=== PATIENT | female | born 1990 | race Caucasian/White ===

== ENCOUNTER → 2018-09-09 17:45 | Outpatient (CLI) | payer OTHER, SELFPAY ==
[2018-09-09 20:08] LABS: Chlamydia Trachomatis by PCR Negative (Negative); Neisserai gonorrhoeae by PCR Negative (Negative); Probe Check PASS; Sample Adequacy Control PASS; Specimen Processing Control PASS
[2018-09-12 15:55] LABS: HPV Reflexed? NOT INDICATED
== END ==
PROVIDERS: Referring Provider Obstetrics & Gynecology; Visit Provider Obstetrics & Gynecology
DX: Z12.4 Encounter for screening for malignant neoplasm of cervix (principal); Z11.3 Encounter for screening for infections with a predominantly sexual mode of transmission
CPT/HCPCS: 87491; 87591; 88175; G0145

== ENCOUNTER → 2018-09-25 | Outpatient (CLI) | payer OTHER, SELFPAY ==
[2018-09-25 17:22] LABS: Absolute Lymphocyte Count 1.89 X10^3/ul (0.83-4.51); Absolute Neutrophil Count 5.5 X10^3/uL (2.0-7.7); Basophil# 0.02 X10^3/uL; Basophil% 0.2 % (0-1); Eosinophil# 0.07 X10^3/uL; Eosinophils% 0.9 % (0-5); Hematocrit 37.8 % (37-47); Hemoglobin 13.1 g/dl (12.0-15.0); Lymphocyte # 1.89 X10^3/ul (4.0); Lymphocyte % 23.6 % (19-41); Mean Corp Hgb Conc 34.7 g/gl (32-36); Mean Corpuscular Hgb 30.7 pg (27.0-32.0); Mean Corpuscular Volume 88.5 fL (81-99); Monocyte# 0.54 X10^3/uL; Monocyte% 6.7 % (0-10); Neutrophil # 5.48 X10^3/uL (2.7-7.7); Neutrophil % 68.5 % (47-70); POSITIVE COUNT NO; POSITIVE DIFFERENTIAL NO; POSITIVE MORPHOLOGY NO; Platelet Count 209 K/mm3 (150-450); RBC Distribution Width CV 12.5 % (11.6-14.6); RBC Distribution Width SD 39.9 fl (35.1-43.9); Red Blood Count 4.27 M/mm3 (4.2-5.4)
[2018-09-25 17:58] LABS: Color, Urine Yellow (Yellow); Glucose, Dipstick Normal (Normal); Ketone-Dipstick Negative (Negative); Leukocyte Esterase-Dipstick 100 /ul (Negative); Nitrite-Dipstick Negative (Negative); Occult Blood-Urine Negative /ul (Negative); Protein-Dipstick Negative (Negative); Urine Bilirubin Dipstick Negative (Negative); Urine Clarity Clear (Clear); Urine Urobilinogen Normal (Normal)
[2018-09-25 18:01] LABS: Thyroid Stim Hormone (TSH) 5.38 uIU/mL (0.358-3.74)
[2018-09-25 18:35] LABS: HIV - WCH Non-Reactive (Nonreactive); Rubella IgG 136.6 IU/mL
[2018-09-26 10:22] LABS: Free T3 2.7 pg/mL (2.18-3.98); T4 Free Direct 1.04 ng/dL (0.76-1.46)
[2018-09-27 02:52] LABS: Prenatal RPR NONREACTIVE (NONREACTIVE)
[2018-09-27 13:16] LABS: HEPATITIS B SURFACE AG Negative (Negative); Hep C Antibodies <0.1 s/co ratio (0.0-0.9)
== END | disposition home or self-care (01) ==
LOC: WOBLAB 16:51
PROVIDERS: Visit Provider Obstetrics & Gynecology
DX: Z34.81 Encounter for supervision of other normal pregnancy, first trimester (principal); R79.89 Other specified abnormal findings of blood chemistry
CPT/HCPCS: 36415; 81002; 84439; 84443; 84481; 85025; 86703; 86762; 86803; 87340

== ENCOUNTER → 2019-01-27 | Outpatient (CLI) | payer OTHER, SELFPAY ==
[2019-01-27 17:47] LABS: Hematocrit 35.4 % (37-47); Hemoglobin 12.1 g/dL (12.0-15.0); Mean Corp Hgb Conc 34.2 g/dL (32-36); Mean Corpuscular Hgb 32.3 pg (27.0-32.0); Mean Corpuscular Volume 94.4 fL (81-99); Mean Platelet Vol. 11.6 fl (6.2-12.0); Platelet Count 180 K/mm3 (150-450); RBC Distribution Width CV 11.9 % (11.6-14.6); RBC Distribution Width SD 40.9 fl (35.1-43.9); Red Blood Count 3.75 M/mm3 (4.2-5.4); White Blood Count 8.6 K/mm3 (4.4-11.0)
[2019-01-27 17:54] LABS: Free T3 2.1 pg/mL (2.18-3.98); Glucose Challenge Gest 1H 50g 100 mg/dL (70-140); T4 Free Direct 0.92 ng/dL (0.76-1.46); Thyroid Stim Hormone (TSH) 4.29 uIU/mL (0.358-3.74)
== END | disposition home or self-care (01) ==
LOC: WOBLAB 15:57
PROVIDERS: Visit Provider Obstetrics & Gynecology
DX: Z34.82 Encounter for supervision of other normal pregnancy, second trimester (principal); R94.6 Abnormal results of thyroid function studies
CPT/HCPCS: 36415; 82950; 84439; 84443; 84481; 85027

== ENCOUNTER → 2019-04-01 | Outpatient (CLI) | payer OTHER, SELFPAY | END | disposition home or self-care (01) | LOC: LABSPEC 14:13 | PROVIDERS: Visit Provider Obstetrics & Gynecology | DX: Z36.85 Encounter for antenatal screening for Streptococcus B (principal) | CPT/HCPCS: 87081 ==

== ENCOUNTER 2019-04-27 00:36 | Inpatient (IN) | payer OTHER, SELFPAY ==
[2019-04-27 01:40] VITALS: BMI 26.7
[2019-04-27] MEDS: Lactated Ringers 1,000 ML 200 ML IV ×3 (01:40→09:42)
[2019-04-27 01:55] LABS: Absolute Lymphocyte Count 1.45 X10^3/uL (0.83-4.51); Absolute Neutrophil Count 9.2 X10^3/uL (2.0-7.7); Basophil# 0.03 X10^3/uL; Basophil% 0.3 % (0-1); Eosinophil# 0.06 X10^3/uL; Eosinophils% 0.5 % (0-5); Hematocrit 33.5 % (37-47); Hemoglobin 11.1 g/dL (12.0-15.0); Lymphocyte # 1.45 X10^3/ul (4.0); Lymphocyte % 12.8 % (19-41); Mean Corp Hgb Conc 33.1 g/dL (32-36); Mean Corpuscular Hgb 29.5 pg (27.0-32.0); Mean Corpuscular Volume 89.1 fL (81-99); Mean Platelet Vol. 12.3 fl (6.2-12.0); Monocyte# 0.48 X10^3/uL; Monocyte% 4.2 % (0-10); NRBC Flagged by Analyzer 0 % (0-5); Neutrophil # 9.23 X10^3/uL (2.7-7.7); Neutrophil % 81.7 % (47-70); Platelet Count 161 K/mm3 (150-450); RBC Distribution Width CV 12.8 % (11.6-14.6); RBC Distribution Width SD 41.5 fl (35.1-43.9); Red Blood Count 3.76 M/mm3 (4.2-5.4); White Blood Count 11.3 K/mm3 (4.4-11.0)
[2019-04-27] MEDS: Lactated Ringers 500 ML 999 ML IV (02:00)
[2019-04-27] MEDS: fentaNYL-bupivacaine (epidural) 100 ML BAG EPIDURAL ×2 (03:20→07:55)
--- NOTE | 2019-04-27 09:13 | PCM.HP.OB ---
History Date of Admission: 04/27/19 Final JALYN: 04/25/19 Final JALYN Source: US <20 weeks Gestational age: 40 Weeks and 2 Days History of this : This is a 28 year-old, G [1], P [0], at 40.2 weeks gestational age. Male fetus known to have a 2 vessel cord with a chorio plexus. Weekly NSTs have been reactive. Allergies No Known Allergies Allergy (Verified 04/27/19 02:18) Home Medications: Home Medications Levothyroxine [Synthroid] 25 mcg PO DAILY 04/27/19 Pnv 102/Iron/Folate 1/Dss/Dha 04/27/19 Smoking Status: Never smoker Alcohol: None Number of Fetus(es): 1 NST - FHR Rate Baby A Baseline: 130 Variability:: Moderate Accelerations:: 15 x 15 Decelerations:: None NST Reactive:: Yes FHR Category:: Category I Uterine Activity:: UC 2-4 min apart History Past Pregnancies: Past Pregnancies Delivery Date Name GA/ Weeks Outcome Route Wt Infant Sex Labor Length Anesthesia Delivery Location Provider FOB Labs: Mom's Labs & Results 04/27/19 04/27/19 01:40 01:40 WBC 11.3 H RBC 3.76 L Hgb 11.1 L Hct 33.5 L MCV 89.1 MCH 29.5 MCHC 33.1 RDW Std Deviation 41.5 RDW Coeff of Justen 12.8 Plt Count 161 MPV 12.3 H Immature Gran % (Auto) 0.500 Neut % (Auto) 81.7 H Lymph % (Auto) 12.8 L [place] % (Auto) 4.2 Eos % (Auto) 0.5 Baso % (Auto) 0.3 Absolute Neuts (auto) 9.2 H Absolute Lymphs (auto) 1.45 Nucleated RBC % 0 Blood Type B POSITIVE Antibody Screen NEGATIVE Course Did the patient receive Yes care? Labs Blood Type: B RH: POSITIVE RPR/VDRL/Syphilis Nonreactive Rubella status Immune HbSAg Negative Date Done: 09/25/18 Chlamydia Negative Gonorrhea Negative HIV/AIDS Non-Reactive Group B Strep: Negative Current Obstetrical History Gestational Diabetes No Incompetent Cervix No Infertility No IUGR No Macrosomia No Hypertension/Pre-eclampsia No Placenta Previa/Abruption No PTL/PROM No Uterine anomaly No Oligohydramnios No Polyhydramnios No Multiple gestation No Past Medical History Asthma No Diabetes No Hypertension No Heart disease No Mitral valve prolapse No Neurologic/Seizure disorder/ Yes Migraines Kidney disease No Liver disease No Varicosities No Clotting disorders/Hx of DVT No Thyroid Dysfunction Yes Other medical diseases No Psychiatric disorders No Major trauma No Abnormal PAP smear No Sleep apnea No Mammogram in the last 2 years No Social History Marital Status: Alleged father Jorge Hx Smoking No Smoking Status Never smoker Expected Infant Delivery Method: Spontaneous Vaginal Number of Visits: 16 Review of Systems Constitutional: Denies: Chills, Fever, Weight Change HEENT: Denies: Head Aches, Sinus Congestion, Sinus Drainage Cardiovascular: Denies: Chest Pain, Palpitations Respiratory: Denies: Cough, Shortness of breath at rest, Sputum production Gastrointestinal: Denies: Abdominal Pain, Nausea, Vomiting Genitourinary: Denies: Dysuria Musculoskeletal: Denies: Joint Pain, Joint Tenderness Skin: Denies: Rash, Wounds Neurological: Denies: Numbness, Tingling, Focal weakness Psychiatric: Denies: Anxiety, Depression, Homicidal Ideations, Suicidal Ideations Hematologic/ Lymphatic: Denies: Easy Bruising, Easy Bleeding Physical Exam General: Alert, Oriented x3, No apparent distress HEENT: Atraumatic, Normocephalic. 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 Negative for: Vulvar lesions Estimated gestational size: Appropriate for gestational size Presentation: Cephalic Cervix Dilation (cm): 9.5 - cervical lip 9-12 o'clock Station: 1 Effacement (%): 100 Assessment/Plan A: This is a 28 year-old, G [1], P [0], at 40.2 weeks gestational age. Here for spontaneous labor. FHR baseline 130, + accels, -decels, moderate variability; Category I UC 1-[address] SVE 9.5/100/+1 Male fetus on Ultrasound known to have 2 vessel cord and chorio plexus P: Turned into right CHILD Continue with labor, expecting [place] Supervisor to evaluate after delivery
[2019-04-27] MEDS: Ondansetron 4 MG/2 ML Vial IV (09:23)
[2019-04-27] MEDS: Oxytocin 30 units/NS 500 ml 30 UNITS/500 ML IV.SOLN 334 UNITS IV (11:36)
--- NOTE | 2019-04-27 11:38 | PLAC_PTH ---
PATIENT: ROBERT APARICIO LOC: [facility] U#:[id number] AGE/SX: 28/F ROOM: WP004 RE04/27/[address]: Precious Atwood CNM : 1990 BED: 1 DIS: 04/29/2019 SPEC #: [id number] RECD: 04/27/19 14:19 STATUS: BRENDA DANK #: [id number] DONNIE: 04/27/19 11:[address]: Precious Atwood DEPT: SURGICAL PATHOLOGY RECD BY: Chauncey Scherer ENTERED: 04/28/19 11:01 SP TYPE: PLACENTA OTHR DR: Dr. Nancy Zamora MD Tissues: Placenta, NOS Procedures: Surgery Specimen Level V HEADER OPERATION: Vaginal delivery PRE-OP DIAGNOSIS: To determine if cord has 2 or 3 vessels TISSUE SUBMITTED: Placenta MICROSCOPIC DIAGNOSIS Placenta: Placental disc - third trimester placenta (490 gm). - Focal area of infarction (1.5 cm in greatest dimension). - Focal increased intervillous and perivillous fibrin deposition. Membranes - no pathologic diagnosis. Umbilical cord - two blood vessels. SJ:russ 04/30/19 MICROSCOPIC DESCRIPTION Slides are reviewed. GROSS DESCRIPTION SPECIMEN: PLACENTA / CLINICAL INFORMATION: A. Weight: 2.993 kg B. Gestational Age: 40 weeks C. Sex: Male PLACENTAL WEIGHT (POST FIXATION): 490 gm PLACENTAL DIMENSIONS: 19 x 15 x 3 cm PLACENTAL SHAPE: Usual ovoid PLACENTAL WEIGHT FOR GESTATIONAL AGE: Within 10-99th percentile MEMBRANES - Present A. Insertion: Marginal B. Site of rupture from edge: 3 cm from edge of placental disc C. Color of membrane: Gotti-abarca D. Abnormalities: None UMBILICAL CORD - Present A. Color: Gotti-abarca B. Insertion: Eccentric, received in two fragments C. Length: 47 cm D. Diameter: 1.2 cm E. Number of vessels: Two F. Abnormalities: None PLACENTAL DISC - Present A. Color of surface: Gotti-abarca B. surface abnormalities: None C. Maternal cotyledons: Intact with minimal tears D. Attached retro placental clot: No clot E. Cut surface: Dark red and spongy F. Lesions: Serial sections reveal a gotti-white lesion at the edge of the placental disc measuring 1.5 x 1 cm in greatest dimension. G. Separate clot: Absent SECTIONS SUBMITTED: 1. Peripheral membranes 2. Umbical cord 3. Placental disc, lesion 4. Commis Chef sections of uninvolved placental disc 5. Commis Chef sections of uninvolved placental disc AM:russ 04/29/19 TC:4 CPT: 09414
--- NOTE | 2019-04-27 12:20 | PCM.OPRPT ---
Vaginal Delivery Maternal Presentation: Active Labor Amniotic Membrane Rupture Type: Artificial - with pushing Amniotic Fluid Description: Clear Final JALYN: 04/25/19 Final JALYN Source: US <20 weeks Gestational age: 40 Weeks and 2 Days Date of Procedure: 04/27/19 Pre-Operative Diagnosis: 40 weeks gestation Post-Operative Diagnosis: S/P Surgery/ Procedure Performed: Spontaneous Vaginal Delivery Type of Anesthesia: Epidural Description of Procedure: Pushed well, delivered a viable male OA to GARRETT. placed on mothers abdomen. Apgars 8/9. Cord clamped x2 by CNM and cut by FOB. Pitocin started at 334ml/hr. Placenta delivered spontaneously, French mechanism, intact, appearing 3 vessel cord(expected 2 vessel cord per US), central insertion, fundal massage provided. Placenta sent for pathology. Second degree laceration of left vaginal vault extending to perineum, repaired with a 3.0 vicryl by CNM and attending. First degree right periurethal laceration, repaired with a 3.0 vicryl. EBL 150. Sponge and instrument count correct x 2 with RN. Precious Atwood CNM delivered with CNM attending Dr. Zamora present throughout. Presentation: Vertex, GARRETT Placental Delivery Description: Spontaneous Placenta Disposition: Sent to Pathology Cord Vessel Description: 3 Vessels - U/S shows 2 vessel cord, appears to be 3 vessel, placenta sent to pathology Cord Entanglement: None Drain: Red to straight drain Estimated Blood Loss: 150 A gender: Male (1 minute): 8 (5 minute): 9 Episiotomy Description: None Laceration: Vaginal Extension/lac - left vaginal floor to perineal, 2nd degree Medications given after delivery: IV Pitocin
--- NOTE | 2019-04-27 12:40 | DCINST_ITS ---
Discharge Diet: No Restrictions Discharge Activity: Return to Normal Activity, May not drive while taking narcotic pain medications., May Shower May resume sexual activity in: 4-6 weeks Additional Activity Instructions:: Nothing in the vagina for 4-6 weeks. You may return to work/school in 6 weeks. Call your doctor if your incision/area has: Continuous Slow Oozing, Sudden Increased Bleeding, Increased Pain/ Swelling, Increased Redness, Foul Smelling Discharge Additional Dressing/Incision Instructions:: For vaginal laceration/repair Additional Instructions: If you experience any of the following, contact your healthcare provider. * Bleeding that soaks a pad every hour for 2 hours * Unrelieved incision or abdominal pain * Swelling, redness, discharge or bleeding from your incision or episiotomy site * Your incision begins to separate * Problems urinating (including inability to urinate or burning while urinating). * Visual changes * Severe headache * Flu-like symptoms * Pain or redness in one of both of your breasts * Pain, warmth, tenderness or swelling in your legs, especially the calf area * Frequent nausea and vomiting * Symptoms of depression or anxiety If you experience any of the following, call 911 or go to the nearest Emergency Room. * Chest pain * Problems breathing * Seizure activity * Partial or complete paralysis of a body part, slurred speech, weakness or drooping of the face, or a sudden inability to walk or hold your balance Allergies/Adverse Reactions: Allergies No Known Allergies Allergy (Verified 04/27/19 02:18) Medications to take at Discharge Acetaminophen [Tylenol] 1,000 mg PO Q8H PRN PRN tablet 04/27/19 Ibuprofen [Motrin] 600 mg PO Q6H PRN PRN tablet 04/27/19 Levothyroxine [Synthroid] 25 mcg PO DAILY 04/27/19 Oxycodone [Oxyir] 5 - 10 mg PO Q4H PRN PRN 4 Days #10 tablet 04/27/19 Pnv 102/Iron/Folate 1/Dss/Dha 04/27/19 The following prescriptions were given: Oxycodone [Oxyir] 5 - 10 mg PO Q4H PRN PRN 4 Days #10 tablet PRN Reason: Pain Score 4-10/10 Transmission Status: Received by [facility]/pharmacy #[id number] Please Follow Up With: Precious Atwood CNM When: Call to make an appointment with your doctor in 6 weeks. Primary Care Physician: Care Physician,No Primary [Primary Care Provider] - Test Results: Test results from this visit will be discussed in further detail at your follow- up appointment, if applicable. Proposed Discharge Date: 04/29/19
[2019-04-27] MEDS: Levothyroxine 25 MCG TABLET PO (13:15)
[2019-04-27 15:57] VITALS: BP 116/73; PULSE 88; RESP 18; TEMP 37.3
[2019-04-27] MEDS: Ibuprofen 600 MG Tablet PO (16:05)
[2019-04-27 20:40] VITALS: BP 127/87; PULSE 81; RESP 18; TEMP 36.4
[2019-04-27] MEDS: Acetaminophen 500 MG Tablet 1000 MG PO (21:14)
[2019-04-28 00:35] VITALS: BP 118/81; PULSE 74; RESP 18; TEMP 36.4
[2019-04-28] MEDS: Ibuprofen 600 MG Tablet PO ×3 (02:29→15:48)
[2019-04-28 03:01] VITALS: BP 140/86; PULSE 91; RESP 18; TEMP 36.9; O2SAT 100
[2019-04-28] MEDS: Levothyroxine 25 MCG TABLET PO (06:50)
[2019-04-28] MEDS: Acetaminophen 500 MG Tablet 1000 MG PO ×2 (06:53→18:12)
[2019-04-28 08:00] VITALS: BP 124/88; PULSE 90; RESP 16; TEMP 36.9
--- NOTE | 2019-04-28 08:32 | PCM.PN.BLA ---
Progress Note Went in to do rounds, but Dena is sleeping. states she is fine and to just let her sleep for now. Let him know I will be back at lunch to check back in.
[2019-04-28] MEDS: Senna/Docusate Sodium 1 Tablet PO (09:23)
[2019-04-28] MEDS: Prenatal Vits Tablet 1 TABLET PO (09:23)
--- NOTE | 2019-04-28 12:47 | PCM.PN.OB ---
Subjective: Feeling well, but bottom is sore. Pain 4/10. Using Motrin, Tylenol, and ice which help. States was crying really upset yesterday after the senior human resources representative spoke with her, but after they talked to 's mother and found out he had a similiar testicle issue she felt much better. Today she is emotionally good. Objective: S/P NVD day #1. Using Motrin, Tylenol, ice, witch ad pads and hydrocortisone cream for second degree laceration. Pain is 4/10. Sitting up in chair for lunch. is in the room. Infant male in nursery for testing and testicular ultrasound. Fundus u/1. Passing flatus, no BM yet. Lochia light red, moderate. continues with shield and lanolin ointment. Working with d/t sons recessed chin. - Physical Exam Vitals/I&O's: Vital Signs Temp Pulse Resp BP Pulse Ox 98.5 F 90 16 124/88 H 100 04/28/19 08:00 04/28/19 08:00 04/28/19 08:00 04/28/19 08:00 04/28/19 03:01 Oxygen Delivery Method Room Air Weight: 77.564 kg Body Mass Index (BMI) 26.7 Intake and Output for Last 24 Hours 04/26/19 04/27/19 04/28/19 23:59 23:59 23:59 Intake Total 3106.67 / 3106.67 Output Total 3100 / 3100 Balance 6.67 / 6.67 General: Alert, Oriented x3, Cooperative HEENT: Atraumatic, PERRLA, EOMI, Normocephalic Neck: Supple, No JVD, Negative Carotid Bruits Lungs: Clear to auscultation, Normal air movement Cardiovascular: Regular rate, No murmurs Abdomen: Bowel Sounds Present, Soft, Non Tender, Passing Flatus, - - Fundus u/1, firm Extremities: Capillary Refill Less than 3 Seconds, Edema - bilateral feet +2 Skin: No rashes, No breakdown Musculoskeletal: No Tenderness to Palpation of Joints or Extremities Neurological: Cranial nerves II-XII grossly intact Psych/Mental Status: Normal Affect, Appropriate, Anxious - Some anxiety over sons unknown medical issues Current Medications Acetaminophen (Tylenol) 1,000 mg PO Q8H PRN PRN PRN Reason: Pain Score 1-3/10 Last Admin: 04/28/19 06:53 Dose: 1,000 mg Documented by: Bisacodyl (Dulcolax) 10 mg RECTAL UD PRN PRN Reason: If no BM Dibucaine (Dibucaine) 1 applic TOPICAL TID PRN PRN; Protocol PRN Reason: Discomfort Hydrocortisone (Hytone) 1 applic TOPICAL TID PRN PRN; Protocol PRN Reason: Discomfort Ibuprofen (Motrin) 600 mg PO Q6H PRN PRN PRN Reason: Pain Score 1-3/10 Last Admin: 04/28/19 09:23 Dose: 600 mg Documented by: Levothyroxine Sodium (Synthroid) 25 mcg PO DAILY@0600 MARIAH Last Admin: 04/28/19 06:50 Dose: 25 mcg Documented by: Methylergonovine Maleate (Methergine) 0.2 mg IM X1 PRN PRN Reason: Excess bleeding/uterine atony Ondansetron HCl (Zofran) 4 mg IV Q4H PRN PRN PRN Reason: Nausea Oxycodone HCl (Oxyir) 5 - 10 mg PO Q4H PRN PRN PRN Reason: Pain Score 4-10/10 Multivit/Folic Acid/Iron (Prenatabs Fa) 1 tablet PO DAILY@1200 MARIAH Last Admin: 04/28/19 09:23 Dose: 1 tablet Documented by: Senna/Docusate Sodium (Senokot-S, Gladis-Colace) 1 - 2 tablet PO DAILY PRN PRN PRN Reason: Constipation Last Admin: 04/28/19 09:23 Dose: 2 tablet Documented by: Simethicone (Mylicon) 80 mg PO PCHS PRN PRN Reason: Indigestion/Stomach pain Sodium Chloride () 5 - 15 ml IV UD PRN PRN Reason: SALINE FLUSH Medical Necessity - Tobacco Use Smoking Status: Never smoker Assessment/Plan A: S/P day 1 of Second degree vaginal/perineal laceration Recovery P: Will stay one more day for observation Continue pain management Increase fluids and fiber, encouraged ambulation Educated on normal lochia, s/s of PPD, return of ovulation and menses, techniques, and when to return to office.
[2019-04-28 13:49] VITALS: BP 136/104; PULSE 106; RESP 16; TEMP 36.6
[2019-04-28 20:07] VITALS: BP 140/98; PULSE 85; RESP 18; TEMP 36.6; O2SAT 97
[2019-04-29 01:44] VITALS: BP 119/76; PULSE 76; RESP 18; TEMP 36.8
[2019-04-29] MEDS: Ibuprofen 600 MG Tablet PO (05:07)
[2019-04-29] MEDS: Levothyroxine 25 MCG TABLET PO (06:19)
[2019-04-29 08:00] VITALS: BP 127/84; PULSE 71; RESP 16; TEMP 36.9; O2SAT 97
--- NOTE | 2019-04-29 08:07 | DS.PCM_ITS ---
Discharge Date and Diagnosis Date of Admission: 04/27/19 Date of Discharge: 04/29/19 Hospital Course and Treatment Operations: None Procedures: None Summary of Care Provided: The patient is a 28 year old F [] Subjective: Reports first BM. Pain well controlled with Tylenol and Motrin. Will continue OTC Tylenol, Motrin, and stool softener at home as needed. Feeling worried about her son because ultrasound couldn't find testes at all. They are going to follow up tomorrow in [place]. Otherwise feeling well and ready to go home. Objective: Fundus u/2, firm. Lochia scant rubra. Tearful when talking about sons diagnosis and going to [place] tomorrow. Postvaginal delivery day #2, healing as expected. - Physical Exam Vitals/I&O's: Vital Signs Temp Pulse Resp BP Pulse Ox 98.2 F 76 18 119/76 97 04/29/19 01:44 04/29/19 01:44 04/29/19 01:44 04/29/19 01:44 04/28/19 20:07 Oxygen Delivery Method Room Air Weight: 77.564 kg Body Mass Index (BMI) 26.7 Intake and Output for Last 24 Hours 04/27/19 04/28/19 04/29/19 23:59 23:59 23:59 Intake Total 3106.67 / 3106.67 Output Total 3100 / 3100 Balance 6.67 / 6.67 General: Alert, Oriented x3, Cooperative HEENT: Atraumatic, PERRLA, EOMI, Normocephalic Neck: Supple, No JVD, Negative Carotid Bruits Lungs: Clear to auscultation, Normal air movement Cardiovascular: Regular rate, No murmurs Abdomen: Bowel Sounds Present, Soft, Non Tender, Passing Flatus, - - Fundus u/2 Extremities: Capillary Refill Less than 3 Seconds, Edema - Bilateral feet +1 Skin: No rashes, No breakdown Musculoskeletal: No Tenderness to Palpation of Joints or Extremities Neurological: Cranial nerves II-XII grossly intact Psych/Mental Status: Normal Affect, Appropriate, Anxious Current Medications Acetaminophen (Tylenol) 1,000 mg PO Q8H PRN PRN PRN Reason: Pain Score 1-3/10 Last Admin: 04/28/19 18:12 Dose: 1,000 mg Documented by: Bisacodyl (Dulcolax) 10 mg RECTAL UD PRN PRN Reason: If no BM Dibucaine (Dibucaine) 1 applic TOPICAL TID PRN PRN; Protocol PRN Reason: Discomfort Hydrocortisone (Hytone) 1 applic TOPICAL TID PRN PRN; Protocol PRN Reason: Discomfort Ibuprofen (Motrin) 600 mg PO Q6H PRN PRN PRN Reason: Pain Score 1-3/10 Last Admin: 04/29/19 05:07 Dose: 600 mg Documented by: Levothyroxine Sodium (Synthroid) 25 mcg PO DAILY@0600 MARIAH Last Admin: 04/29/19 06:19 Dose: 25 mcg Documented by: Methylergonovine Maleate (Methergine) 0.2 mg IM X1 PRN PRN Reason: Excess bleeding/uterine atony Ondansetron HCl (Zofran) 4 mg IV Q4H PRN PRN PRN Reason: Nausea Oxycodone HCl (Oxyir) 5 - 10 mg PO Q4H PRN PRN PRN Reason: Pain Score 4-10/10 Multivit/Folic Acid/Iron (Prenatabs Fa) 1 tablet PO DAILY@1200 MARIAH Last Admin: 04/28/19 09:23 Dose: 1 tablet Documented by: Senna/Docusate Sodium (Senokot-S, Gladis-Colace) 1 - 2 tablet PO DAILY PRN PRN PRN Reason: Constipation Last Admin: 04/28/19 09:23 Dose: 2 tablet Documented by: Simethicone (Mylicon) 80 mg PO PCHS PRN PRN Reason: Indigestion/Stomach pain Sodium Chloride () 5 - 15 ml IV UD PRN PRN Reason: SALINE FLUSH Discharge Diet: No Restrictions Discharge Activity: Return to Normal Activity, May not drive while taking narcotic pain medications., May Shower May resume sexual activity in: 4-6 weeks Additional Activity Instructions:: Nothing in the vagina for 4-6 weeks. You may return to work/school in 6 weeks. Call your doctor if you observe: Fever of 101 or Higher, Coldness, Increased Pain, Numbness or Tingling, Change in Color, Inability to urinate, Inability to have a bowel movement, Using more than one pad per hour, Shortness of breath, Dizziness, Fainting spells, Swelling in the ankles, Chest pain, Increased palpitations (irregular heartbeat), Calf discomfort, Uncontrolled pain Additional Dressing/Incision Instructions:: For vaginal laceration/repair Home Medications: Medications to take at Discharge Acetaminophen [Tylenol] 1,000 mg PO Q8H PRN PRN tab 04/27/19 Ibuprofen [Motrin] 600 mg PO Q6H PRN PRN tab 04/27/19 Levothyroxine [Synthroid] 25 mcg PO DAILY 04/27/19 Pnv 102/Iron/Folate 1/Dss/Dha 04/27/19 Primary Care Physician: Care Physician,No Primary [NON-STAFF] - Please Follow Up With: Nancy Zamora MD When: 6 Weeks Disposition: Home Minutes spent on discharge:: 20 Medical Necessity - Tobacco Use Smoking Status: Never smoker Meaningful Use Info Meaningful Use Diagnoses (Choose all that apply): None applicable
--- NOTE | 2019-04-29 08:45 | NURSING ---
reviewed student's documentation for completion
[2019-04-29] MEDS: Senna/Docusate Sodium 1 Tablet PO (08:51)
--- NOTE | 2019-04-29 08:58 | NURSING ---
Patient teaching on appropriate use of pacifiers with
[2019-04-29] MEDS: Prenatal Vits Tablet 1 TABLET PO (11:41)
[2019-04-29 12:00] VITALS: BP 133/78; PULSE 78; RESP 16; TEMP 37.4; O2SAT 97
[2019-04-30 15:41] LABS: Pathology Specimen OB SEE PATHOLOGY REPORT
== END 2019-04-29 15:50 | disposition home or self-care (01) | DRG 807 ==
PROVIDERS: Admitting Provider Obstetrics & Gynecology; Family Provider Obstetrics & Gynecology; PCP Obstetrics & Gynecology; Referring Provider Obstetrics & Gynecology; Visit Provider Obstetrics & Gynecology
DX: O99.284 Endocrine, nutritional and metabolic diseases complicating childbirth (principal); Z37.0 Single live birth; O70.1 Second degree perineal laceration during delivery; Z3A.40 40 weeks gestation of pregnancy; E07.9 Disorder of thyroid, unspecified
CPT/HCPCS: 59025; 59050; 85025; 86850; 86900; 86901; 88307; 99218; J7120; G0378; J2405

== ENCOUNTER → 2019-06-19 15:00 | Outpatient (CLI) | payer OTHER, SELFPAY ==
[2019-06-19 16:03] LABS: Free T3 2.3 pg/mL (2.18-3.98); T4 Free Direct 1.06 ng/dL (0.76-1.46); Thyroid Stim Hormone (TSH) 2.83 uIU/mL (0.358-3.74)
== END ==
PROVIDERS: PCP Obstetrics & Gynecology; Visit Provider Obstetrics & Gynecology
DX: R53.83 Other fatigue (principal); E03.9 Hypothyroidism, unspecified
CPT/HCPCS: 36415; 84439; 84443; 84481

== ENCOUNTER → 2020-08-24 | Outpatient (CLI) | payer OTHER, SELFPAY ==
[2020-08-26 03:07] LABS: Chlamydia By Nucleic Acid AMP Negative (Negative)
[2020-08-26 09:52] LABS: Gonococcus By Nucleic Acid AMP Negative (Negative)
== END | disposition home or self-care (01) ==
LOC: LABSPEC 09:19
PROVIDERS: Visit Provider Student in an Organized Health Care Education/Training Program
DX: Z32.01 Encounter for pregnancy test, result positive (principal); Z11.3 Encounter for screening for infections with a predominantly sexual mode of transmission
CPT/HCPCS: 87491; 87591

== ENCOUNTER → 2020-09-03 15:55 | Outpatient (CLI) | payer OTHER, SELFPAY ==
[2020-09-03 16:37] LABS: Absolute Lymphocyte Count 1.72 X10^3/uL (0.83-4.51); Absolute Neutrophil Count 4.3 X10^3/uL (2.0-7.7); Basophil# 0.04 X10^3/uL; Basophil% 0.6 % (0-1); Eosinophils% 1.5 % (0-5); Hematocrit 41.2 % (37-47); Hemoglobin 13.8 g/dL (12.0-15.0); Lymphocyte # 1.72 X10^3/ul (4.0); Lymphocyte % 26.4 % (19-41); Mean Corp Hgb Conc 33.5 g/dL (32-36); Mean Corpuscular Hgb 30.1 pg (27.0-32.0); Mean Platelet Vol. 11.2 fl (6.2-12.0); Monocyte# 0.34 X10^3/uL; Monocyte% 5.2 % (0-10); NRBC Flagged by Analyzer 0 % (0-5); Neutrophil # 4.31 X10^3/uL (2.7-7.7); Neutrophil % 66.1 % (47-70); Platelet Count 234 K/mm3 (150-450); RBC Distribution Width SD 39.6 fl (35.1-43.9); Red Blood Count 4.58 M/mm3 (4.2-5.4); White Blood Count 6.5 K/mm3 (4.4-11.0)
[2020-09-04 09:03] LABS: HIV - WCH Non-Reactive (Nonreactive); Hepatitis B Surface Antigen Non-Reactive (Nonreactive); Hepatitis C Antibody Non-Reactive (Nonreactive); Rubella IgG Reactive (Nonreactive); Syphilis Antibodies Non-reactive
== END ==
PROVIDERS: Visit Provider Student in an Organized Health Care Education/Training Program
DX: Z34.81 Encounter for supervision of other normal pregnancy, first trimester (principal)
CPT/HCPCS: 36415; 85025; 86703; 86762; 86780; 86803; 87086; 87340

== ENCOUNTER → 2020-12-30 15:49 | Outpatient (CLI) | payer OTHER, SELFPAY ==
[2020-12-30 17:22] LABS: Hemoglobin 10.9 g/dL (12.0-15.0); Mean Corpuscular Volume 93.8 fL (81-99); Mean Platelet Vol. 11.1 fl (6.2-12.0); Platelet Count 214 K/mm3 (150-450); RBC Distribution Width SD 41.1 fl (35.1-43.9); Red Blood Count 3.52 M/mm3 (4.2-5.4); White Blood Count 7.6 K/mm3 (4.4-11.0)
[2020-12-30 17:40] LABS: Glucose Challenge Gest 1H 50g 113 mg/dL (70-140)
== END ==
PROVIDERS: Visit Provider Obstetrics & Gynecology
DX: Z34.82 Encounter for supervision of other normal pregnancy, second trimester (principal)
CPT/HCPCS: 36415; 82950; 85027

== ENCOUNTER → 2021-03-08 | Outpatient (CLI) | payer OTHER, SELFPAY | END | disposition home or self-care (01) | LOC: LABSPEC 10:07 | PROVIDERS: Visit Provider Obstetrics & Gynecology | DX: Z36.85 Encounter for antenatal screening for Streptococcus B (principal) | CPT/HCPCS: 87081 ==

== ENCOUNTER → 2021-04-04 | Outpatient (CLI) | payer OTHER, SELFPAY | END | disposition home or self-care (01) | PROVIDERS: Visit Provider Student in an Organized Health Care Education/Training Program | DX: Z36.85 Encounter for antenatal screening for Streptococcus B (principal) | CPT/HCPCS: 87081 ==

== ENCOUNTER 2021-04-09 05:11 | Inpatient (IN) | payer OTHER, SELFPAY ==
[2021-04-09] VITALS (45 sets, daily range): BP systolic 113–145; BP diastolic 62–87; PULSE 71–99; RESP 16; TEMP 36.3–37.4; O2SAT 94–100; BMI 27.3
[2021-04-09] MEDS: Lactated Ringers 1,000 ML 200 ML IV ×2 (05:40→11:15)
[2021-04-09] MEDS: Lactated Ringers 500 ML 999 ML IV ×2 (05:56→10:08)
[2021-04-09 06:24] LABS: Absolute Lymphocyte Count 1.36 X10^3/uL (0.83-4.51); Absolute Neutrophil Count 6.8 X10^3/uL (2.0-7.7); Basophil# 0.02 X10^3/uL; Basophil% 0.2 % (0-1); Eosinophil# 0.05 X10^3/uL; Eosinophils% 0.6 % (0-5); Hematocrit 34.9 % (37-47); Lymphocyte # 1.36 X10^3/ul (0.83-4.51); Lymphocyte % 15.5 % (19-41); Mean Corp Hgb Conc 31.5 g/dL (32-36); Mean Corpuscular Hgb 27.3 pg (27.0-32.0); Mean Corpuscular Volume 86.6 fL (81-99); Mean Platelet Vol. 11.8 fl (6.2-12.0); Monocyte# 0.46 X10^3/uL; Monocyte% 5.2 % (0-10); NRBC Flagged by Analyzer 0 % (0-5); Neutrophil # 6.84 X10^3/uL (2.7-7.7); Platelet Count 171 K/mm3 (150-450); RBC Distribution Width SD 43.3 fl (35.1-43.9); Red Blood Count 4.03 M/mm3 (4.2-5.4); White Blood Count 8.8 K/mm3 (4.4-11.0)
--- NOTE | 2021-04-09 07:49 | PCM.HP.BLA ---
History and Physical Date of Admission: 04/09/21 HPI: 30-year-old G2, P1 at 40/6 weeks, JALYN 04/03/2021 by LMP, admitted in active labor and spontaneous rupture of membranes. Patient had rupture membranes around 30 this morning. Fluid was initially clear however upon admission light meconium. Reports contractions. Reports movement. Denies bleeding. Denies headache, vision changes, chest pain, shortness of breath, nausea or vomiting, diarrhea or constipation, fevers or chills. uncomplicated OB history: JALYN 04/03/21 by LMP male 04/27/19 () Medical history: Denies Surgical history: Denies Medications: vitamin and Colace Family history: No history of blood clots or bleeding disorders Allergies: No known drug allergies Review of system: Negative otherwise stated above Physical exam: Vitals: Blood pressure 139/84 Pulse 86 Temp 98.3 ?F General: No acute distress, uncomfortable with contraction HEENT: Normocephalic/atraumatic, pupils equally round and reactive to light and accommodation Cardiorespiratory: No use of accessory muscles, no increased effort of breathing, regular heart rate Abdomen: Soft, nontender, nondistended. Gravid MSK: Full range of motion, strength of extremities 5 out of 5 Neurologic: Cranial nerves II through XII grossly intact CE: 7/60/-1, artificial rupture of 4 bag to clear fluid FHR: 135/moderate variability/+accel/-Decel [place]: Irregular contractions labs: B positive HIV negative Hepatitis B/C neg/neg Syphilis antibody nonreactive Gonorrhea/chlamydia negative GBS neg 04/04 Assessment/plan: 30-year-old G2, P1 at 40/6 weeks admitted in active labor with spontaneous rupture of membranes light meconium. Considering epidural. Will augment with Pitocin if needed after 4 hours. GBS negative.
[2021-04-09] MEDS: fentaNYL-bupivacaine (epidural) 100 ML BAG EPIDURAL (11:13)
[2021-04-09] MEDS: Oxytocin 30 units/NS 500 ml 30 UNITS/500 ML IV.SOLN 334 UNITS IV (12:40)
--- NOTE | 2021-04-09 12:49 | EX.PCM.OBRPT ---
Maternal Data Information Final JALYN: 04/03/21 Final JALYN Source: LMP Vaginal Delivery Operative Information Date of Procedure: 04/09/21 Pre-Operative Diagnosis: [place] intrauterine , term, meconium fluid Post-Operative Diagnosis: [place] intrauterine , term, meconium fluid Surgery / Procedure Performed: Spontaneous Vaginal Delivery Estimated Blood Loss: 300cc Findings Description of Procedure: Spontaneous vaginal delivery viable infant male. No nuchal cord. Baby to mom. Cord clamped and cut. Spontaneous delivery of placenta. Second-degree laceration. Repaired in usual fashion, hemostatic. Infant A Gender: Male (1 minute): 8 (5 minute): 9
[2021-04-09] MEDS: 0.9% Saline Lock 10 ML Syringe IV (15:20)
--- NOTE | 2021-04-09 18:45 | CASEMGMT ---
Social Work Brief Assessment Labor and Delivery Unit Refer documentation below for further details. Date of Referral/Notification: 04/09/21 Time of Referral: 16:40 Referred By: Dr. Guo Reason for Referral: History of anxiety Date of Intervention: 04/09/21 Time of Intervention: 18:45 Informant: Medical record and mother of baby (MOB) Assessment: Met with MOB and FOB/, Jorge in room. FOB holding baby boy, Jah upon this worker entering room. Introduced role and reason for referral. MOB open to speaking with this worker. MOB reports history of anxiety and states was taking magnesium. MOB reports has followed with therapist in the past and states already has follow up appointments scheduled with therapist if needed. MOB reports is breast feeding and feedings are going well. MOB reports has an ?almost 2 year old son? at home. MOB reports good support from and family. MOB provided information on post- depression and anxiety. MOB denies any needs for self or baby. Nursing updated on the above and reports no concerns. Plan: Home with resources provided No further needs requested or indicated. Whitley Wade, ADOPTION AGENT, APPLICATIONS SUPPORT ANALYST
[2021-04-09] MEDS: Ibuprofen 600 MG Tablet PO (21:28)
[2021-04-09] MEDS: Acetaminophen 500 MG Tablet 1000 MG PO (23:24)
[2021-04-10 04:15] VITALS: BP 110/73; PULSE 81; RESP 16; TEMP 36.8
[2021-04-10] MEDS: Ibuprofen 600 MG Tablet PO (06:02)
[2021-04-10 08:12] VITALS: BP 129/76; PULSE 87; RESP 16; TEMP 36.6
--- NOTE | 2021-04-10 09:03 | PCM.PN.OB ---
Subjective Subjective day 1. Has a somewhat achy back that is Relieved with Motrin. Lochia minimal. Breast-feeding going well. Objective Data Objective Data Vital Signs: Vital Signs Temp Pulse Resp BP Pulse Ox 97.9 F 87 16 129/76 H 100 04/10/21 08:12 04/10/21 08:12 04/10/21 08:12 04/10/21 08:12 04/09/21 11:30 Oxygen Delivery Method Room Air Weight: 79.107 kg Body Mass Index (BMI) 27.3 Intake & Output: Intake and Output for Last 24 Hours 04/08/21 04/09/21 04/10/21 23:59 23:59 22:59 Intake Total 3023.33 / 3023.33 Output Total 1300 / 1300 Balance 1723.33 / 1723.33 Lab / Micro Data Result Diagrams: 04/09/21 06:15 Micro: Microbiology 04/09/21 05:45 Nasal Secretion SARS-CoV-2 Antigen (Rapid) - Final Physical Exam Const alert, oriented x3 and no apparent distress HEENT normocephalic Head and Scalp: atraumatic Neck full ROM Resp normal respiratory effort Cardio regular rate GI normal to inspection, nondistended, normoactive bowel sounds GI Narrative: Uterus 2 cm below umbilicus Back/Spine normal ROM Extremity normal to inspection Extremity Narrative: Minimal pedal edema Neuro no focal motor deficits and no sensory deficits noted Psych mental status grossly normal and affect normal Assessment & Plan (1) state: PLAN: day 1 status post . Breast-feeding. Home today with 2-week telehealth and 6-week visit. (2) Vaginal delivery:
--- NOTE | 2021-04-10 09:05 | PCM.DC ---
Discharge Instructions Diet Discharge Diet: No restrictions Activity Discharge Activity: Return to Normal Activity and May Shower May resume sexual activity in: 4-6 weeks Weight Bearing Status: Weight bearing as tolerated Lifting Restrictions: No greater than 25 pounds Dressing / Incision Call your doctor if you observe: Fever of 101 or Higher, Change in Color, Inability to urinate, Using more than 1 pad per hour, Shortness of breath, Dizziness, Swelling in the ankles, Chest pain and Calf discomfort Follow Up Care Please Follow Up With: Vika Guo DO When: 2-week telehealth appointment and 6-week visit Test Results: Test results from this visit will be discussed in further detail at your follow-up appointment, if applicable. Discharge Plan Admission Admit Date/Time: 04/09/21 05:11 Primary Reason for Your Visit: Labor, Vaginal delivery Attending Provider: Vika Guo Discharge Orders/Prescriptions Prescriptions: No Action Pnv 102/Iron/Folate 1/Dss/Dha tablet 1 tablet DAILY RF: 0 Disposition Disposition (needs filled in before D/C Order can be placed): Home, Self Care
[2021-04-10 12:34] VITALS: BP 121/83; PULSE 77; RESP 16; TEMP 36.6
== END 2021-04-10 14:52 | disposition home or self-care (01) | DRG 807 ==
LOC: WPOUT 05:13 → WP 05:13
PROVIDERS: Admitting Provider Student in an Organized Health Care Education/Training Program; Visit Provider Student in an Organized Health Care Education/Training Program
DX: O77.0 Labor and delivery complicated by meconium in amniotic fluid (principal); O70.1 Second degree perineal laceration during delivery; Z37.0 Single live birth; Z3A.40 40 weeks gestation of pregnancy
CPT/HCPCS: 59025; 59050; 85025; 86850; 86900; 86901; 87426; 99218; J7120; A4216; G0378